=== PATIENT | male | born 1975 ===

== ENCOUNTER 2018-09-11 09:37 | Emergency (ER) | payer OTHER ==
[~2018-09-11] VITALS: Ht 180.3 cm; Wt 75.0 kg
[2018-09-11] MEDS ORDERED: HYDROCODONE/ACETAMINOPHEN 5/325MG TABLET PO ONE (11:15)
[2018-09-11] MEDS ORDERED: BACITRACIN ZINC OINT UDPKT TOP ONE (11:15)
[2018-09-11] MEDS ORDERED: TETANUS, DIPHTHERIA, PERTUSSIS VAC/PF 0.5ML (>7YR OLD) IM ONE (11:15)
[2018-09-11] MEDS ORDERED: LIDOCAINE HCL 1% 20ML VIAL (Pyxis) INJ INFIL ONE (11:15)
[2018-09-11] MEDS ORDERED: AMPICILLIN SOD/SULBACTAM NA 3 G in SODIUM CHLORIDE 0.9% 100 ML IV SCH (12:45)
[2018-09-11] MEDS: CLINDAMYCIN HCL 150MG CAPSULE PO SCH (14:36)
[2018-09-11 14:42] VITALS: BP 133/92
== END 2018-09-11 14:43 | disposition home or self-care (01) ==
LOC: ER 09:37
DX: S62.661A Nondisplaced fracture of distal phalanx of left index finger, initial encounter for closed fracture (principal); W23.0XXA Caught, crushed, jammed, or pinched between moving objects, initial encounter; Y93.89 Activity, other specified; Y92.89 Other specified places as the place of occurrence of the external cause; Y99.8 Other external cause status; S61.311A Laceration without foreign body of left index finger with damage to nail, initial encounter
CPT/HCPCS: 12001; 73140; 90471; 90715; 99284; J0295; J3490; J7050